=== PATIENT | male | born 1990 | race Caucasian/White ===

== ENCOUNTER 2016-03-14 21:50 | Emergency (ER) | payer SELFPAY ==
[~2016-03-14] VITALS: Ht 175.3 cm; Wt 127.3 kg
[2016-03-14 21:50] VITALS: BP 138/95; TEMP 97.3
[~2016-03-14 21:50] MED LIST: NO HOME MEDICATIONS; PHENERGAN W/CO120 ML PO
[2016-03-14 23:39] VITALS: PULSE 98
== END 2016-03-14 23:55 | disposition home or self-care (01) ==
LOC: COL.ER 21:50
DX: T40.4X1A Poisoning by other synthetic narcotics, accidental (unintentional), initial encounter (principal); R41.82 Altered mental status, unspecified; Y92.810 Car as the place of occurrence of the external cause

== ENCOUNTER 2021-03-25 10:48 | Emergency (ER) | payer SELFPAY ==
[~2021-03-25] VITALS: Ht 175.3 cm; Wt 162.3 kg
[2021-03-25] MEDS ORDERED: ATIVAN 1MG T1 MG/TAB PO (10:57)
[2021-03-25] MEDS ORDERED: SEROQUEL XR400 M1 PO (10:58)
[2021-03-25 11:28] LABS: COLLECTION METHOD CLEAN CATCH
[2021-03-25 11:33] LABS: BASO % 0.3 % (0.0-2.0); EOS # 0.3 K/mm3 (0.0-0.7); GRAN # 5.5 K/mm3 (1.4-6.5); GRAN % 61.9 % (42.2-75.2); HEMATOCRIT 43.3 % (42.0-52.0); HEMOGLOBIN 14.5 g/dl (13.5-18.0); LYMPH # 2.4 K/mm3 (1.2-3.4); LYMPH % 26.7 % (20.0-51.0); MEAN CELL VOLUME 87 fl (80.0-100.0); MEAN CORPUSCULAR HEMOGLOBIN 29 pg (27-31); MEAN CORPUSCULAR HGB CONC 34 g/dl (33.0-37.0); MEAN PLATELET VOLUME 9.2 fl (7.4-10.4); MONO # 0.7 K/mm3 (0.1-0.6); MONO % 7.9 % (1.7-9.3); PLATELET COUNT 253 K/mm3 (130-400); RED BLOOD COUNT 4.99 M/mm3 (4.20-5.60)
[2021-03-25 11:35] LABS: MUCOUS Present (NOT PRESENT); PH 6 (5-8); SQUAMOUS EPITHELIAL 0-2 /hpf (0-10); URINE APPEARANCE Clear (CLEAR/HAZY); URINE BACTERIA None Seen /hpf (NONE SEEN); URINE BILIRUBIN Negative (NEGATIVE); URINE BLOOD Negative (NEGATIVE); URINE COLOR Yellow (YELLOW); URINE GLUCOSE Negative (NEGATIVE); URINE KETONE Negative (NEGATIVE); URINE LEUKOCYTE ESTERASE Negative (NEGATIVE); URINE NITRATE Negative (NEGATIVE); URINE PROTEIN(semi-quant) Negative (NEGATIVE); URINE RBC 0-2 /hpf (0-2); URINE UROBILINOGEN >=4.0 (NEGATIVE)
[2021-03-25 11:51] LABS: TRICYCLIC ANTIDEPRESS URINE POSITIVE
[2021-03-25 11:59] LABS: ALANINE AMINOTRANSFERASE 42 U/L (0-55); ALBUMIN 4.1 gm/dL (3.5-5.0); ALKALINE PHOSPHATASE 62 U/L (40-150); ANION GAP 10 mmol/L (7-16); AST,SGOT 36 U/L (5-34); BILIRUBIN,TOTAL 0.9 mg/dL (0.2-1.2); BLOOD UREA NITROGEN 15 mg/dL (9-21); CALCIUM 8.8 mg/dL (8.4-10.2); CARBON DIOXIDE 23 mmol/L (22-29); CHLORIDE 108 mmol/L (98-107); CREATININE, serum 0.94 mg/dL (0.72-1.25); GLUCOSE 133 mg/dL (70-99); SODIUM 141 mmol/L (136-145); TOTAL PROTEIN 7.9 gm/dL (6.2-8.1)
[2021-03-25 12:00] LABS: ACETAMINOPHEN < 1.0 ug/mL (10-30); ALCOHOL(ethanol),MEDICAL < 10 mg/dL (0-10); SALICYLATE < 5.0 mg/dL (15.0-30.0)
[2021-03-25 12:13] LABS: TSH w REFLEX 1.111 uIU/mL (0.350-4.940)
--- NOTE | 2021-03-26 10:44 | NUR ---
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 ED fax number provided to fax court documents. Contact made with [facility] once patient brings Ipad back out to insure hearing was completed. Courts will fax over the order. Zoom information: [id number]: [id number] Passcode: [id number]
[2021-03-27 07:36] VITALS: TEMP 97.4
[2021-03-27 11:56] VITALS: BP 154/90; PULSE 102
== END 2021-03-27 12:14 ==
LOC: COL.ER 10:48
PROVIDERS: Nurse Practitioner Primary Care
DX: F29 Unspecified psychosis not due to a substance or known physiological condition (principal); F20.9 Schizophrenia, unspecified; Z87.891 Personal history of nicotine dependence; Z20.822 Contact with and (suspected) exposure to COVID-19; Z79.899 Other long term (current) drug therapy
CPT/HCPCS: J1200; J1630; J2060